=== PATIENT | female | born 1980 | race Hispanic/Latino ===

== ENCOUNTER 2016-05-22 09:40 | Emergency (ER) | payer OTHER ==
[~2016-05-22] VITALS: Ht 167.6 cm; Wt 72.6 kg
[2016-05-22 09:45] VITALS: BP 114/74
--- NOTE | 2016-05-22 10:01 | ED THROAT/DENTAL COMPLAINT ---
History of Present Illness General Chief Complaint: Sore Throat, Dental Pain Stated Complaint: SORE THOART Source: patient, old records Exam Limitations: no limitations Vital Signs & Intake/Output Vital Signs & Intake/Output Vital Signs Date Time Temp Pulse Resp B/P Pulse O2 O2 Flow FiO2 Ox Delivery Rate 05/22 0945 97.4 80 20 114/74 99 Room Air Allergies Coded Allergies: MDX - Codeine (CODEINE) (Intermediate, RASH 09/25/11) Reconcile Medications Unable to Obtain Home Medication History Triage Note: PT C/O ALLERGIC REACTION TO A GLASS OF WINE SHE HAD YESTERDAY. STATES HER THROAT BEGAN TO CLOSE UP AND SHE WAS UNABLE TO SLEEP LAST NIGHT. PT STATES SHE TOOK A CLARITAN AND FELT A LITTLE BETTER. Triage Nurses Notes Reviewed? yes Onset: Abrupt Duration: hour(s): (15), better Timing: recent history Injury Environment: home Severity: mild Severity Numbers: 4 No Modifying Factors: none Associated Symptoms: DENIES : No Patient currently breastfeeds: No HPI: 36-year-old female with no medical problems no history of allergic reactions or anaphylaxis presents to emergency room after she states she was drinking wine last night with a friend around 7 PM when she began to feel as though her throat was closing and was very dry she denies any other associated symptoms no lip or tongue swelling tingling nausea vomiting difficulty breathing or rash or itchiness. She took a Claritin around 11:00 last night he went to sleep. She states she woke up this morning and feels better however states that her throat still feels dry. No other new soaps or detergents. She denies any other complaints she is not taken anything for her symptoms this morning. She denies any fever chills cough congestion and rhinorrhea (KARENA CANTOR) Past History Travel History Traveled to [place] past 21 day No Medical History Any Pertinent Medical History? none Surgical History Surgical History: none Psychosocial History What is your primary language Grenadian Tobacco Use: Never used ETOH Use: occasional use Illicit Drug Use: denies illicit drug use Family History Hx Contributory? No (KARENA CANTOR) Review of Systems Review of Systems Constitutional: Reports: see HPI. All Other Systems: Reviewed and Negative Comments Review of systems: See HPI, All other systems negative. Constitutional, no chills no fever, no malaise HEENT: No visual changes sore throat no congestion, no ear pain Cardiovascular: No chest pain , no palpitation Skin, no jaundice no rashes, no change in skin Respiratory: No dyspnea no cough no sputum GI: No nausea no vomiting, no diarrhea : No dysuria Muscle skeletal: No joint pain, no back pain, no neck pain, Neurologic: No numbness no headache Psych: No stress Heme/endocrine: No bruising no bleeding Immunology: No lymphadenopathy, (KARENA CANTOR) Physical Exam Physical Exam General Appearance: well developed/nourished, no apparent distress, alert, awake Mouth/Throat: normal mouth inspection, pharynx normal Comments: Well-developed well-nourished patient in no apparent distress. Head/Face: Atraumatic, no maxillary/frontal sinus tenderness, no facial swelling Eyes: PERRL, EOMI, no conjunctival injection Ear:External auditory canals clear. Nose: atraumatic.Normal inspection: No bleeding, no septal hematoma Throat: Moist mucous membranes.Pharynx normal. No pharyngeal erythema/exudate seen. No stridor/drooling or assymetry. No swelling or edema. Neck: Supple, no lymphadenopathy, FROM Back: FROM, Nontender Cardiovascular: Regular rate and rhythms no murmurs Respiratory: No respiratory distress. Patient speaking in full complete sentences. Breath sounds clear to auscultation bilaterally: NO W/R/R Extremities: full range of motion Neuro: Alert and oriented x3 Skin: Warm & dry;No appreciable rash on exposed skin Psych: Mood affect normal, normal memory normal judgment. Core Measures ACS in differential dx? No Severe Sepsis Present: No Septic Shock Present: No (KARENA CANTOR) Progress Differential Diagnosis: odontogenic abscess, sveta-tonsillar abscess, stomatitis/ gingivitis, strep pharyngitis, ALLERGIC REACTION ANAPHYLAXIS PHARYNGITIS VIRAL SYNDROME Plan of Care: Patient clinically appears well there is no trismus no uvula displacement speaking in full complete sentences lungs are clear there is no stridor discussed with her symptoms otherwise Benadryl if needed possibly developING viral infection advise clear liquids and return with any concerns she feels comfortable plan cleared for discharge (KARENA CANTOR) Departure Departure Time of Disposition: 1007 Disposition: HOME OR SELF CARE Condition: Stable Clinical Impression Primary Impression: Throat pain Referrals: ITZEL KAUFMAN MD (PCP/Family) Additional Instructions: Drink plenty of fluids Benadryl if needed return immediately with any concerns. Departure Forms: Customer Survey General Discharge Information Prescriptions: Current Visit Scripts Unable to Obtain Home Medication History (FAYE ARRIETA,KARENA) PA/[employer] Co-Sign Statement Statement: ED Attending supervision documentation- [] I saw and evaluated the patient. I have also reviewed all the pertinent lab results and diagnostic results. I agree with the findings and the plan of care as documented in the PA's/[employer]'s documentation. [X] I have reviewed the ED Record and agree with the PA's/[employer]'s documentation. [] Additions or exceptions (if any) to the PAs/[employer]'s note and plan are summarized below: [] (KING ERAZO,YANCY)
== END 2016-05-22 10:12 ==
LOC: ERH 09:40
DX: R07.0 Pain in throat (principal)
CPT/HCPCS: 99282